=== PATIENT | female | born 1970 | race American Indian/Alaskan Native ===

== ENCOUNTER 2020-07-20 16:18 | Emergency (ER) | payer OTHER ==
[2020-07-20] MEDS ORDERED: FAMOTIDINE 20 MG/2 ML INJ IV ONE (16:41)
[2020-07-20] MEDS ORDERED: dexAMETHasone 4 MG/ML VIAL IV ONE (16:41)
[2020-07-20] MEDS ORDERED: SODIUM CHLORIDE 0.9% 1000 ML 1,000 ML IV ONE (16:41)
[2020-07-20] MEDS ORDERED: diphenhydrAMINE 50 MG/ML VIAL IV ONE (16:41)
--- NOTE | 2020-07-20 16:45 | Emergency Department Report ---
Blank Doc - Documentation Documentation: 49-year-old female that presents with allergic reaction from eating shrimp. This initial assessment/diagnostic orders/clinical plan/treatment(s) is/are subject to change based on patient's health status, clinical progression and re- assessment by fellow clinical providers in the ED. Further treatment and workup at subsequent clinical providers discretion. Patient/guardians urged not to elope from the ED as their condition may be serious if not clinically assessed and managed. Initial orders include: 1- Patient sent to [facility] for further evaluation and treatment 2- treatment ordered RN notified to have patient brought back [facility].
[2020-07-20] MEDS ORDERED: EPINEPHrine/PF 1 MG/1 ML INJ SUB-Q ONE (16:52)
[2020-07-20] MEDS ORDERED: methylPREDNISolone Sod Succinate 125 MG/2 ML INJ IV ONE (16:52)
--- NOTE | 2020-07-20 16:54 | Emergency Department Report ---
HPI - General Chief Complaint: Allergic Reaction Time Seen by Provider: 07/20/20 16:41 - HPI HPI: This is a 49-year-old -[place] female presents to the emergency department with a complaint of an allergic reaction to some shellfish. The patient has known history to iodine and strawberries. She ate the shellfish about 1 hour ago and began having some swelling to the upper cheeks, below the eyes, hives and itching, and feels like her throat is "restricted." She denies any obvious swelling to the lips or tongue. She took a Claritin in route as she was driven in by her significant other. She denies any shortness of breath, fever, chest pain. No past medical history. She denies any tobacco or illicit drug use. No recent travel or sick contacts at home. ED Past Medical Hx - Past Medical History Previous Medical History?: Yes - Surgical History Past Surgical History?: Yes Hx Cholecystectomy: Yes Additional Surgical History: x1. breast reduction - Medications Home Medications: Home Medications Medication Instructions Recorded Confirmed Last Taken Type EPINEPHrine [Epipen] 0.3 mg IJ ONCE PRN #1 auto.injct 07/20/20 Unknown Rx Famotidine [Pepcid] 20 mg PO BID #6 tablet 07/20/20 Unknown Rx predniSONE [Deltasone] 20 mg PO BID #6 tab 07/20/20 Unknown Rx ED Review of Systems ROS: Stated complaint: ALLERGIC REACTION Other details as noted in HPI Comment: All other systems reviewed and negative Constitutional: denies: chills, fever Eyes: denies: eye pain, vision change ENT: throat pain. denies: ear pain Respiratory: denies: cough, shortness of breath Cardiovascular: denies: chest pain, palpitations Gastrointestinal: denies: abdominal pain, vomiting Genitourinary: denies: dysuria, discharge Musculoskeletal: denies: back pain, arthralgia Skin: lesions (hives), pruritus Neurological: denies: headache, weakness Physical Exam - Physical Exam Vital Signs: Vital Signs 07/20/20 16:23 Temperature 98.3 F Pulse Rate 86 Respiratory 26 H Rate Blood Pressure 157/67 [Right] O2 Sat by Pulse 100 Oximetry Physical Exam: GENERAL: The patient is well-developed well-nourished. HENT: Normocephalic. Atraumatic. Patient has moist mucous membranes. Oropharynx is clear without drooling or trismus. No obvious angioedema of the lips or tongue. EYES: Extraocular motions are intact. Pupils equal reactive to light bilaterally. There is some mild inferior periorbital edema. NECK: Supple. Trachea is midline. CHEST/LUNGS: Clear to auscultation. There is no respiratory distress noted. HEART/CARDIOVASCULAR: Regular. There is no tachycardia. There is no murmur. ABDOMEN: Abdomen is soft, nontender. Patient has normal bowel sounds. SKIN: Skin is warm and dry. There are a few scattered urticarial lesions and excoriations. NEURO: The patient is awake, alert, and oriented. The patient is cooperative. The patient has no focal neurologic deficits. Normal speech. MUSCULOSKELETAL: There is no tenderness or deformity. There is no limitation range of motion. ED Course Vital Signs 07/20/20 16:23 Temperature 98.3 F Pulse Rate 86 Respiratory 26 H Rate Blood Pressure 157/67 [Right] O2 Sat by Pulse 100 Oximetry ED Medical Decision Making - Medical Decision Making This patient presented with some swelling below her eyes, urticaria and prurit us, and the sensation that there was some "restriction" within her throat. There was no drooling or trismus and oropharynx is clear. No signs of shortness of breath or respiratory distress. Patient was given Solu-Medrol, Benadryl, Pepcid and epinephrine. She was reevaluated multiple times over multiple hours and says she is feeling much better. Vital signs have been reassuring including being afebrile. She will be discharged home with some steroids and Pepcid and an EpiPen. She will take [id number] Benadryl as needed. She will return to the ER with any worsening of her symptoms or with any acute distress. Critical Care Time: No Critical care attestation.: If time is entered above; I have spent that time in minutes in the direct care of this critically ill patient, excluding procedure time. ED Disposition Clinical Impression: Urticaria, Elevated blood pressure reading Allergic reaction Qualifiers: Encounter type: initial encounter Qualified Code(s): T78.40XA - Allergy, unspecified, initial encounter Disposition: TO HOME OR SELFCARE Is pt being admited?: No Condition: Stable Instructions: Urticaria (ED), Food Allergy (ED), Anaphylaxis (ED) Additional Instructions: Please follow-up with a primary care physician in the next few days. Return to the emergency department with any return or worsening of your symptoms, or with any acute distress. I am prescribing you an EpiPen to use with any signs of angioedema or anaphylaxis. You should use this with any allergic reaction causing swelling of the tongue or throat, shortness of breath or chest pain. If you have to use the EpiPen, call 911 immediately afterwards and get to the closest emergency department. Prescriptions: predniSONE [Deltasone] 20 mg PO BID #6 tab EPINEPHrine [Epipen] 0.3 mg IJ ONCE PRN #1 auto.injct PRN Reason: Anaphylaxis Famotidine [Pepcid] 20 mg PO BID #6 tablet Referrals: PCP, Your [Other] - 2-3 Days Time of Disposition: 18:43
[2020-07-20 18:46] VITALS: BP 137/57
== END 2020-07-20 18:57 | disposition home or self-care (01) ==
LOC: ED 16:18
DX: T78.40XA Allergy, unspecified, initial encounter (principal); Z90.49 Acquired absence of other specified parts of digestive tract; Z98.890 Other specified postprocedural states; X58.XXXA Exposure to other specified factors, initial encounter
CPT/HCPCS: 96361; 96372; 96374; 96375; 99283; J0171; J1200; J2930; J7030; J1100